=== PATIENT | male | born 1985 | race African-American/Black ===

== ENCOUNTER 2018-01-20 23:54 | Emergency (ER) | payer OTHER ==
[~2018-01-20] VITALS: Ht 188 cm; Wt 158.8 kg
[2018-01-21] MEDS ORDERED: ROBAXIN500 MG PO (00:30)
[2018-01-21 00:50] VITALS: BP 137/89
== END 2018-01-21 00:47 | disposition home or self-care (01) ==
LOC: M.ERS 23:54
DX: R51 Headache (principal); V49.19XA Passenger injured in collision with other motor vehicles in nontraffic accident, initial encounter; Y93.89 Activity, other specified; Y92.89 Other specified places as the place of occurrence of the external cause; Y99.8 Other external cause status